=== PATIENT | female | born 1930 | race Asian ===

== ENCOUNTER 2016-05-05 11:18 | Inpatient (IN) | payer OTHER, MEDICAID ==
[2015-05-14 12:02] VITALS: Ht 157.5 cm; Wt 54.4 kg
[~2016-05-05] VITALS: Ht 157.5 cm; Wt 54.4 kg
[2016-05-05 11:18] VITALS: BP 160/69; PULSE 61; RESP 16; TEMP 98.2; O2SAT 98
[~2016-05-05 11:18] MED LIST: ACET-2165 PO; ALPR0.2583 PO; ASPI-1063 PO; CEL20 PO; CITA10TA71 PO; CLOP75TA2 PO; COLL100 PO; CYPR4TAB34 PO; DONE10TA44 PO; ENAL20TA70 PO; ENAL5TAB85 PO; EZET1TAB29 PO; HYDR-3110 PO; INSU100V26 SUBCUT; INSU100V9 SUBCUT; LORA10TA7 PO; MAGN400O4 PO; MEMA5TAB PO; METF1000 PO; OMEP40CA33 PO; POLY17PO20 PO; PROC10TA PO; RANI300T4 PO; TRAM50TA92 PO; ZINC56.7 TP; [UNRECOGNIZED DRUG - CODE] PO; [UNRECOGNIZED DRUG - CODE] PO
--- NOTE | 2016-05-05 11:18 | NUR ---
PLACED IN BED 1, TRIAGED AT BEDSIDE BIB SQ 64
--- NOTE | 2016-05-05 11:25 | NUR ---
Patient brought in by ambulance, stable condition, alert to name but forgetful, poor historian. Medics states that she was brought in due to complaining of chest pain. Patient states she had left side chest pain prior to arrival but states that the pain is gone. Denies any shortness of breath at any time. No other complaints/injuries per patient or noted.
--- NOTE | 2016-05-05 11:30 | NUR ---
Dr. Kam at bedside
--- NOTE | 2016-05-05 11:39 | NUR ---
Patient's 02 sat 98% on room air, Dr. Kam informed, no 02 needed per MD order.
--- NOTE | 2016-05-05 11:52 | NUR ---
Patient's daughter present-spoke with patient. Per daughter, patient states that she has no chest pain or shortness of breath and does not remember having any chest pain.
[2016-05-05 12:05] LABS: BASOPHILS % (AUTO) 0.8 % (0.0-2.0); EOSINOPHILS # (AUTO) 0.2 K/uL (0.0-0.4); HEMOGLOBIN 11.3 g/dL (12.0-16.0); LYMPHOCYTES # (AUTO) 1.8 K/uL (1.0-5.5); LYMPHOCYTES % (AUTO) 32.6 % (20.5-51.5); MEAN CORPUSCULAR HEMOGLOBIN 31 pg (27-31); MEAN CORPUSCULAR HGB CONC 33 % (32-36); MEAN CORPUSCULAR VOLUME 93 fL (79.0-98.0); MONOCYTES # (AUTO) 0.4 K/uL (0.0-1.0); MONOCYTES % (AUTO) 6.8 % (1.7-9.3); NEUTROPHILS # (AUTO) 3.2 K/uL (1.8-7.7); NEUTROPHILS % (AUTO) 55.8 % (40.0-70.0); PLATELET COUNT (AUTO) 194 K/uL (130-430); RED BLOOD CELL COUNT(AUTO) 3.68 MIL/uL (4.2-6.2); RED CELL DISTRIBUTION WIDTH 12.4 % (9.0-15.0); WHITE BLOOD COUNT (AUTO) 5.6 K/uL (4.8-10.8)
[2016-05-05 12:10] LABS: ANION GAP 2 (5-15); CALCIUM 8.6 mg/dL (8.4-11.0); CHLORIDE 105 mmol/L (98-107); CREATININE 1.91 mg/dL (0.55-1.30); GLUCOSE 282 mg/dL (70-99); POTASSIUM 3.9 mmol/L (3.5-5.1); PROTHROMBIN TIME 10.5 SECS (9.5-12.5); SODIUM SERUM 136 mmol/L (136-145); UREA NITROGEN, BLOOD 42 mg/dL (8-21)
[2016-05-05 12:14] LABS: ALANINE AMINOTRANSFERASE 13 U/L (12-78); ASPARTATE AMINOTRANSFERASE 22 U/L (10-37); CHOLESTEROL 170 mg/dL (<200); HDL CHOLESTEROL 61 mg/dL (>55); LDL CHOLESTEROL 80 mg/dL (<100); TOTAL BILIRUBIN 0.3 mg/dL (0.0-1.0); TOTAL PROTEIN, SERUM 7.9 g/dL (6.4-8.3); TRIGLYCERIDES 151 mg/dL (30-150)
--- NOTE | 2016-05-05 12:29 | NUR ---
In and Out catheter with use of sterile technique per Dr. Kam's verbal order. Immediate return of 50 ml clear yellow urine noted. Urine sample collected and sent to lab. Pt tolerated procedure well.
[2016-05-05 12:50] LABS: BILIRUBIN,URINE NEGATIVE (NEGATIVE); BLOOD, URINE 2+ (NEGATIVE); CLARITY/URINE CLEAR (CLEAR); COLOR,URINE YELLOW (YELLOW); GLUCOSE,URINE 3+ (NEGATIVE); KETONES,URINE NEGATIVE (NEGATIVE); LEUKOCYTE ESTERASE ,URINE 1+ (NEGATIVE); NITRITE, URINE NEGATIVE (NEGATIVE); PROTEIN URINE 2+ (NEGATIVE); UROBILINOGEN,URINE 0.2 (0.2-1.0)
[2016-05-05] MEDS ORDERED: NACL 0.9% 1,000 ML IV ONE (13:00)
[2016-05-05] MEDS ORDERED: ASPIRIN 81 MG TAB.CHEW PO ONE (13:00)
--- NOTE | 2016-05-05 13:00 | NUR ---
Patient in stable condition, no chest pain or shortness of breath per patient. Daughter present.
[2016-05-05 13:03] LABS: BACTERIA,URINE MANY /HPF (None Seen); RBC,URINE 20-50 /HPF (0-3); WBC,URINE 80-100 /HPF (0-3)
--- NOTE | 2016-05-05 13:44 | NUR ---
Telemetry strip printed, interpreted as SINUS RHYTHM at 62 bpm, and placed on the chart.
[2016-05-05] MEDS ORDERED: cefTRIAXone 1 GM in D5W 50 ML IV ONE (13:45)
[2016-05-05] MEDS ORDERED: cefTRIAXone 1 GM VIAL ONE (13:54)
--- NOTE | 2016-05-05 13:55 | NUR ---
Patient will be admitted to care of Dr. Cox. Admitted to tele unit. Will go to room 113A. Summary report printed. Report given to Nestor MAC.
--- NOTE | 2016-05-05 14:02 | NUR ---
ADMIT NOTE Received pt from ER to the floor with a diagnosis of CHEST PAIN R/O OR. Admission process initiated. patient oriented to pain management, safety and call light-teach back done.
[2016-05-05] MEDS ORDERED: PROCHLORPERAZINE MALEATE 10 MG TABLET PO PRN (14:30)
[2016-05-05] MEDS ORDERED: ALPRAZolam 0.25 MG TABLET PO PRN (14:30)
[2016-05-05] MEDS ORDERED: ZINC OXIDE 30 GM TP PRN (14:30)
[2016-05-05] MEDS ORDERED: ACETAMINOPHEN 325 MG TABLET PO PRN (14:30)
[2016-05-05] MEDS ORDERED: NON-FORMULARY MEDICATION (Hydrocodone Bit/Acetaminophen (Hydrocodon-Acetaminophen 5-300) 1 PO PRN (14:30)
[2016-05-05] MEDS ORDERED: MILK OF MAGNESIA 30 ML UDC PO PRN (14:30)
[2016-05-05 14:50] VITALS: BP 113/51; PULSE 60; RESP 20; TEMP 98.3; O2SAT 98
--- NOTE | 2016-05-05 14:52 | NUR ---
CARDIOLOGY CONSULT Spoke with Rain regarding request for consultation with Dr. Garcia ([phone]) for reason: chest pain.
[2016-05-05 14:59] VITALS: BP 113/51; PULSE 60; RESP 19; TEMP 98.3; O2SAT 98
--- NOTE | 2016-05-05 15:45 | NUR ---
NOTE REC'D PT FROM ADMIT ESTEFANIA TAMAYO, AT 1430. PT AND HER DAUGHTER AT BEDSIDE ANSWERED ASSESSMENT QUESTIONS AND PT AND HER DAUGHTER WERE ORIENTED TO NURSING ROUTINES AND PROCEDURES, CALL LIGHT AND SAFETY PRECAUTIONS (FALL PRECAUTIONS) TO CALL BEFORE GETTING OOB. PT IS CONFUSED AND PT'S DAUGHTER RAISED PT'S BED RAILS. CALL LIGHT WAS PLACED NEXT TO PT AND SHOWN HOW TO CALL FOR ASSISTANCE. DR GRAVES ON THE FLOOR AND ASSESSMENT WAS COMPLETED AT THIS TIME. IV IN LEFT AC INTACT AND PATENT INFUSING IVF'S FROM ER. PT ON AN AIR MATTRESS AT THIS TIME. NO SOB/RESP DISTRESS OR CHEST PAIN/DISCOMFORT NOTED AT THIS TIME. PT HAD TELE UNIT PUT ON AT ADMISSION TO FLOOR. PT'S PRIMARY LANGUAGE IS TAGALOG. NO NEEDS NOTED AT THIS TIME.
[2016-05-05] MEDS: INSULIN ASPART 100 UNITS/ML, 10 ML VIAL SUBCUT SCH ×2 (16:29→21:00)
[2016-05-05] MEDS ORDERED: NS 100 ML IV ONE (18:45)
--- NOTE | 2016-05-05 18:55 | NUR ---
NOTE PT HAS BEEN RESTING IN BED ALL SHIFT WITH TELE UNIT. IVF'S INFUSING AT THIS TIME. NO SOB/RESP DISTRESS OR CHEST PAIN/DISCOMFORT NOTED AT THIS TIME. CALL LIGHT WITHIN REACH. PT CALM AND QUIET IN BED, PT'S DAUGHTER AND ANOTHER FAMILY MEMBER AT BEDSIDE. NO NEEDS NOTED. CALL LIGHT WITHIN REACH.
[2016-05-05 19:30] VITALS: BP 116/50; PULSE 64; RESP 18; TEMP 98; O2SAT 98
--- NOTE | 2016-05-05 19:30 | NUR ---
notes received the pt from the day nurse.pt a/a/ox1 does not speak Estonian.iv intact to lt ac,no redness or swelling noted..monitor in place and shows sr.no dyspnea noted.vs taken call light within reach,safety measures in progress.continue to monitor.
[2016-05-05] MEDS ORDERED: DONEPEZIL HCL 5 MG TABLET (ARICEPT) PO SCH (21:00)
[2016-05-05] MEDS ORDERED: CYPROHEPTADINE 4 MG TAB PO SCH (21:00)
[2016-05-05] MEDS ORDERED: NON-FORMULARY MEDICATION (Ranitidine Hcl 300 MG) PO SCH (21:00)
[2016-05-05] MEDS ORDERED: FAMOTIDINE 20 MG TABLET PO SCH (21:00)
[2016-05-05] MEDS: traMADol HCL HCL 50 MG TABLET (ULTRAM) PO SCH (21:14)
--- NOTE | 2016-05-05 21:39 | NUR ---
notes pt awake smiling ,accucheck was 83 novolog insulin held.continue to monitor.
--- NOTE | 2016-05-05 23:30 | NUR ---
notes pt remains asleep,call light within reach.continue to monitor.
--- NOTE | 2016-05-05 23:46 | NUR ---
notes pt resting but keeps removing the monitor leads.continue to monitor.
--- NOTE | 2016-05-06 01:16 | NUR ---
notes pt sleeping,call light within reach.continue to monitor.
[2016-05-06 01:19] VITALS: BP 133/56; PULSE 63; RESP 16; TEMP 97.2; O2SAT 98
--- NOTE | 2016-05-06 03:21 | NUR ---
notes pt sleeping,call light within reach.continue to monitor.
--- NOTE | 2016-05-06 04:12 | NUR ---
notes lab called with the 3am troponin results of 0,185
[2016-05-06 04:29] VITALS: BP 130/62; PULSE 61; RESP 17; TEMP 97.6; O2SAT 98
--- NOTE | 2016-05-06 05:33 | NUR ---
notes pt sleeping,no respiratory difficulty noted.will continue to monitor.
--- NOTE | 2016-05-06 06:23 | NUR ---
closing notes awake,smiling.refusing water when offered.accucheck was 152.call light within reach.will endorse the pt care to the day nurse.
--- NOTE | 2016-05-06 07:30 | NUR ---
RN Notes: Pt is awake but confused. Afebrile, vss stable, refused to be touched. Lungs bilaterally diminished at the bases on room air and sating 96%, no sob nor distress noted. Abdomen soft and non-distended. Has IV access lf 22 guage, dry and patent, saline lock. Call lights within reach, bed in lowest position, hob elevated, maintained safety measures. No skin breakdown noted.
--- NOTE | 2016-05-06 08:00 | NUR ---
Rounds: Assisted pt with breakfast/food. Hob elevated.
[2016-05-06 08:02] VITALS: BP 135/72; PULSE 60; RESP 18; TEMP 97; O2SAT 91
[2016-05-06 08:04] LABS: BASOPHILS % (AUTO) 0.8 % (0.0-2.0); EOSINOPHILS # (AUTO) 0.4 K/uL (0.0-0.4); EOSINOPHILS % (AUTO) 6.6 % (0.0-4.0); HEMATOCRIT 32.5 % (36-48); LYMPHOCYTES # (AUTO) 2.1 K/uL (1.0-5.5); LYMPHOCYTES % (AUTO) 35.4 % (20.5-51.5); MEAN CORPUSCULAR HEMOGLOBIN 31 pg (27-31); MEAN CORPUSCULAR HGB CONC 34 % (32-36); MEAN CORPUSCULAR VOLUME 91 fL (79.0-98.0); MONOCYTES # (AUTO) 0.4 K/uL (0.0-1.0); MONOCYTES % (AUTO) 7.1 % (1.7-9.3); NEUTROPHILS # (AUTO) 3.1 K/uL (1.8-7.7); NEUTROPHILS % (AUTO) 50.1 % (40.0-70.0); PLATELET COUNT (AUTO) 187 K/uL (130-430); RED BLOOD CELL COUNT(AUTO) 3.58 MIL/uL (4.2-6.2); RED CELL DISTRIBUTION WIDTH 12.7 % (9.0-15.0)
[2016-05-06 08:14] LABS: ANION GAP 6 (5-15); CALCIUM 8.3 mg/dL (8.4-11.0); CHLORIDE 106 mmol/L (98-107); CREATININE 1.77 mg/dL (0.55-1.30); GLUCOSE 150 mg/dL (70-99); POTASSIUM 4.3 mmol/L (3.5-5.1); SODIUM SERUM 139 mmol/L (136-145); UREA NITROGEN, BLOOD 35 mg/dL (8-21)
[2016-05-06 09:00] VITALS: BP 135/72; PULSE 60; RESP 18; TEMP 97; O2SAT 91
[2016-05-06] MEDS ORDERED: LORATADINE 10 MG TABLET PO PRN (09:00)
[2016-05-06] MEDS ORDERED: ALPRAZolam 0.25 MG TABLET PO SCH (09:00)
[2016-05-06] MEDS ORDERED: NON-FORMULARY MEDICATION (Citalopram Hydrobromide (Celexa) 10 MG) PO SCH (09:00)
[2016-05-06] MEDS ORDERED: DOCUSATE SODIUM 100 MG/10 ML UDC PO SCH (09:00)
[2016-05-06] MEDS ORDERED: CITALOPRAM HYDROBROMIDE 20 MG TABLET PO SCH ×2 (09:00)
[2016-05-06] MEDS ORDERED: OMEPRAZOLE 20 MG CAPSULE.DR (PriLOSEC) PO SCH (09:00)
[2016-05-06] MEDS ORDERED: ATORVASTATIN 10 MG TABLET PO SCH (09:00)
[2016-05-06] MEDS ORDERED: ASPIRIN 81 MG TABLET(ECOTRIN) PO SCH (09:00)
[2016-05-06] MEDS ORDERED: POLYETHYLENE GLYCOL 3350, 17 GM/ POWD.PACK PO SCH (09:00)
[2016-05-06] MEDS ORDERED: ENALAPRIL MALEATE 5 MG TABLET (VASOTEC) PO SCH (09:00)
--- NOTE | 2016-05-06 09:20 | NUR ---
Nutrition Update Jose Scale 17 noted. Pt admitted for chest pain r/o TN. Diet: 2 gm Na, CCHO standard carb-60 gm BMI: 21.9 kg/m2 RD to follow per nutrition care standards.
[2016-05-06] MEDS: traMADol HCL HCL 50 MG TABLET (ULTRAM) PO SCH (09:58)
--- NOTE | 2016-05-06 10:00 | NUR ---
physical therapist fredy came to do gait training able to ambulate with assist via walker. stable. no pain noted.
[2016-05-06] MEDS: INSULIN ASPART 100 UNITS/ML, 10 ML VIAL SUBCUT SCH (10:08)
--- NOTE | 2016-05-06 10:16 | NUR ---
Due medications given. Informed Dr Cox informed to sign the POLST/DNR. status.
[2016-05-06 10:59] VITALS: BP 163/90; PULSE 85; RESP 16; TEMP 97.3; O2SAT 100
--- NOTE | 2016-05-06 11:37 | NUR ---
Latest blood sugar taken 143, no coverage needed at this time. No pain noted and made pt comfortable and family is at the bedside.
--- NOTE | 2016-05-06 12:00 | NUR ---
Removed saline lock IV access and applied band aid. school lunch monitor removed. Transitional care documentation provided. Daughter signed documentations and explained all medications one by one, including indications, dosage, frequency and when to administer it, with return follow up with primary care doctor within a week
[2016-05-06 12:26] VITALS: BP 152/69; PULSE 66; RESP 17; TEMP 98.6; O2SAT 97
--- NOTE | 2016-05-06 12:31 | NUR ---
Daughter and other family members at the bedside.
--- NOTE | 2016-05-06 12:34 | NUR ---
Daughter is feeding the pt.
--- NOTE | 2016-05-06 12:50 | NUR ---
Transitional care documents given to the daughter (Barbara). Instructed to return follow up for the primary care doctor in one week. Instructed also regarding medications, each medication one by one, the dosage, indications, frequency, what time to take. Saline lock removed, heart monitor removed. SDHS id band removed. Wheeled by BREE Yi to the lobby, together with the daughter and other family members in stable condition.
--- NOTE | 2016-05-12 10:43 | NUR ---
Discharge Follow Up Phone Call FI[employer] RETURN REPAIRER phoned patient's daughter, Kelli [phone], and left a voicemail message on 05/07/16. The voicemail was full on 05/11/16. FIELD RETURN REPAIRER phoned and spoke with Kelli on 05/12/16. Kelli stated patient is doing okay back at [facility] and is due to see her PCP, Dr Esteban, there tomorrow. Kelli stated she had no questions or concerns. No further calls needed.
== END 2016-05-06 12:50 | disposition home or self-care (01) | DRG 205 ==
LOC: SED 11:18 → SMU 13:43 → STU 13:55
PROVIDERS: ADMIT Internal Medicine; ATTEND Internal Medicine
DX: M94.0 Chondrocostal junction syndrome [Tietze] (principal); E43 Unspecified severe protein-calorie malnutrition; N17.9 Acute kidney failure, unspecified; N39.0 Urinary tract infection, site not specified; I24.9 Acute ischemic heart disease, unspecified; F02.80 Dementia in other diseases classified elsewhere, unspecified severity, without behavioral disturbance, psychotic disturbance, mood disturbance, and anxiety; G30.9 Alzheimer's disease, unspecified; E78.5 Hyperlipidemia, unspecified; E11.65 Type 2 diabetes mellitus with hyperglycemia; E11.22 Type 2 diabetes mellitus with diabetic chronic kidney disease; D64.9 Anemia, unspecified; Z66 Do not resuscitate; N18.9 Chronic kidney disease, unspecified; I25.10 Atherosclerotic heart disease of native coronary artery without angina pectoris; I12.9 Hypertensive chronic kidney disease with stage 1 through stage 4 chronic kidney disease, or unspecified chronic kidney disease; E86.0 Dehydration; M81.0 Age-related osteoporosis without current pathological fracture; Z68.21 Body mass index [BMI] 21.0-21.9, adult; Z99.3 Dependence on wheelchair; Z74.01 Bed confinement status; Z79.4 Long term (current) use of insulin; Z95.1 Presence of aortocoronary bypass graft; Z95.5 Presence of coronary angioplasty implant and graft; I25.2 Old myocardial infarction; Z91.19 Patient's noncompliance with other medical treatment and regimen; Z79.82 Long term (current) use of aspirin; Z79.899 Other long term (current) drug therapy; Z85.07 Personal history of malignant neoplasm of pancreas
CPT/HCPCS: 36415; 71010; 80048; 80053; 80061; 81000-TC; 82550-TC; 82962; 83880; 84484; 85025; 85610-TC; 85730-TC; 87086; 87186-TC; 93005; 96360; 97116-GP; 99285; J0696; J1815; J7030; J7060